=== PATIENT | male | born 1960 | race Caucasian/White ===

== ENCOUNTER 2019-01-16 10:26 | Emergency (ER) | payer OTHER ==
[2019-01-16] MEDS ORDERED: KETOROLAC 30 MG/ML VIAL IVP STA (11:58)
[2019-01-16] MEDS ORDERED: oxyCODONE 5 MG TABLET PO STA (11:58)
--- NOTE | 2019-01-16 12:01 | ED Physician Documentation ---
History of Present Illness - Stated complaint Stated Complaint: BOTH HANDS SWOLLEN - Chief complaint Chief Complaint: General - History obtained from History obtained from: Patient, Family () - Additonal information Additional information: Patient is a 58-year-old male with history of insulin-dependent diabetes and psoriatic arthritis who presents with swelling of his joints with associated discomfort. His arthritic pain has been under control with Humira. It was stopped 6 days ago because of infection in his left great toe. He was started on oral antibiotics at that time. 4 days ago a PICC line was placed and he has been on IV antibiotics since that time. He presents now because of increased arthritic pain, with swelling of his hands as well as his feet. Review of Systems Constitutional: denies: Fever Ears: denies: Tinnitus/ringing Nose: denies: Congestion Throat: denies: Sore throat Cardiac: denies: Chest pain / pressure Respiratory: denies: Dyspnea, Cough GI: denies: Abdominal Pain, Nausea, Vomiting : denies: Dysuria Skin: denies: Rash Musculoskeletal: reports: Extremity pain, Joint pain, Extremity swelling Neurologic: denies: Headache PD PAST MEDICAL HISTORY - Past Medical History Past Medical History: Yes Respiratory: Sleep apnea, CPAP use Endocrine/Autoimmune: Type 2 diabetes, HyPOthyroidism Musculoskeletal: Rheumatoid arthritis, Other (psoriatic arthritis) Other Past Medical History: osetomylitis in great toe - Past Surgical History Past Surgical History: Yes Ortho: Knee replacement, Spine surgery - Present Medications Home Medications: Ambulatory Orders Medication Instructions Recorded Confirmed Levothyroxine [Synthroid] 200 mcg PO QDAC 08/21/13 08/21/13 glipiZIDE [Glucotrol] 2.5 mg PO 0730 08/21/13 08/21/13 metFORMIN [Glucophage] 1,700 mg PO TIDWM 08/21/13 08/21/13 Exenatide Microspheres [Bydureon] 2 mg SQ 12/02/13 12/02/13 Insulin Glargine [Lantus] 80 unit SUBQ QPM 12/02/13 12/02/13 Insulin Glargine [Lantus] 80 unit SUBQ QPM 12/02/13 12/02/13 Testosterone Enanthate 200 mg IM 12/02/13 12/02/13 [Delatestryl] Gabapentin 300 mg PO BID #20 capsule 01/16/19 Hydrocodone/Acetaminophen 1 - 2 each PO Q6H PRN #14 tablet 01/16/19 [Hydrocodon-Acetaminophen 5-325] - Allergies Allergies/Adverse Reactions: Allergies Allergy/AdvReac Type Severity Reaction Status Date / Time No Known Drug Allergies Allergy Verified 12/02/13 20:06 - Social History Does the pt smoke?: No Smoking Status: Never smoker Does the pt drink ETOH?: Yes Does the pt have substance abuse?: No - Immunizations Immunizations are current?: No PD ED PE NORMAL - Vitals Vital signs reviewed: Yes (hypertensive) - General General: Alert and oriented X 3, Well developed/nourished - HEENT HEENT: Atraumatic, Moist mucous membranes, Pharynx benign - Neck Neck: No adenopathy, No JVD - Cardiac Cardiac: RRR - Respiratory Respiratory: No respiratory distress, Clear bilaterally - Abdomen Abdomen: Soft, Non tender - Back Back: No CVA TTP - Derm Derm: No rash - Extremities Extremities: No calf tenderness / cord, Other (There is a small ulceration on the left great toe, with dorsal erythema. There is no lymphangitic streaking. There is edema of both feet and both hands.) - Neuro Neuro: Alert and oriented X 3, No motor deficit Results - Vitals Vitals: Vital Signs - 24 hr 01/16/19 01/16/19 10:29 13:25 Temperature 36.6 C 36.3 C L Heart Rate 117 H 69 Respiratory 16 17 Rate Blood Pressure 153/85 H 130/78 O2 Saturation 96 96 Oxygen O2 Source Room air PD MEDICAL DECISION MAKING - ED course Complexity details: reviewed results, re-evaluated patient, considered differential, d/w patient, d/w family ED course: The patient's presentation is significant for arthritic pain associated with psoriatic arthritis. He is undergoing treatment for osteomyelitis of the left big toe, with IV medication through PICC line. His presentation does not suggest sepsis or worsening of his osteomyelitis. His diabetes is relatively well controlled. Treatment in the emergency department included administration of Toradol 30 mg IV and oxycodone 5 mg orally. He is being discharged with prescription for gabapentin and for Vicodin. I discussed with him and his symptomatic treatment, outpatient follow-up, as well as potentially worrisome signs or symptoms that should prompt reevaluation in the emergency department. Departure - Departure Disposition: 01 Home, Self Care Clinical Impression: Psoriatic arthritis Osteomyelitis Qualifiers: Osteomyelitis type: unspecified type Osteomyelitis location: foot Laterality: left Qualified Code(s): M86.9 - Osteomyelitis, unspecified Condition: Stable Instructions: ED Joint Pain Follow-Up: Jeny Ruffin PA-C [Primary Care Provider] - Prescriptions: Gabapentin 300 mg PO BID #20 capsule Hydrocodone/Acetaminophen [Hydrocodon-Acetaminophen 5-325] 1 - 2 each PO Q6H PRN #14 tablet PRN Reason: pain Comments: You can use gabapentin as prescribed if needed for pain. You can also use Vicodin as prescribed if needed. Continue the antibiotic therapy via the PICC line as previously prescribed. Follow-up with your primary physician as planned. Return to the emergency department if you develop increasing pain or swelling, or otherwise worsening symptoms. Discharge Date/Time: 01/16/19 13:28
[2019-01-16 13:28] VITALS: BP 130/78
== END 2019-01-16 13:28 | disposition home or self-care (01) ==
LOC: ED 10:26
DX: L40.50 Arthropathic psoriasis, unspecified (principal); M06.9 Rheumatoid arthritis, unspecified; E11.69 Type 2 diabetes mellitus with other specified complication; M86.9 Osteomyelitis, unspecified; E11.621 Type 2 diabetes mellitus with foot ulcer; L97.529 Non-pressure chronic ulcer of other part of left foot with unspecified severity; Z79.4 Long term (current) use of insulin
CPT/HCPCS: 96374; 99283; A9270

== ENCOUNTER 2019-02-02 08:00 | Outpatient (CLI) | payer OTHER ==
[2019-02-02 10:20] LABS: BASOPHILS # (AUTO) 0.1 10^3/uL (0.0-0.1); BASOPHILS % (AUTO) 0.9 %; EOSINOPHILS # (AUTO) 0.1 10^3/uL (0.0-0.7); EOSINOPHILS % (AUTO) 0.6 %; HGB - HEMOGLOBIN 13.2 g/dL (14.0-18.0); LYMPHOCYTES # (AUTO) 2.9 10^3/uL (1.5-3.5); MEAN CORPUSCULAR HEMOGLOBIN 30.3 pg (27.0-31.0); MEAN CORPUSCULAR HGB CONC 33.3 g/dL (32.0-36.0); MEAN CORPUSCULAR VOLUME 91.1 fL (80.0-94.0); MEAN PLATELET VOLUME 7.9 fL (7.4-11.4); MONOCYTES # (AUTO) 1.5 10^3/uL (0.0-1.0); MONOCYTES % (AUTO) 9.5 %; NEUTROPHILS # (AUTO) 10.7 10^3/uL (1.5-6.6); PLT - PLATELET COUNT 433 10^3/uL (130-450); RED BLOOD COUNT 4.34 10^6/uL (4.70-6.10); RED CELL DISTRIBUTION WIDTH 14.2 % (12.0-15.0); WHITE BLOOD COUNT 15.3 x10^3/uL (4.8-10.8)
[2019-02-02 10:42] LABS: ALBUMIN 3.5 g/dL (3.2-5.5); ALBUMIN/GLOBULIN RATIO 1.1 (1.0-2.2); ALKALINE PHOSPHATASE 52 IU/L (42-121); ALT ALANINE AMINOTRANSFERASE 17 IU/L (10-60); AST ASPARTATE AMINOTRANSFERASE 18 IU/L (10-42); BILIRUBIN,TOTAL 0.5 mg/dL (0.2-1.0); BUN - BLOOD UREA NITROGEN 18 mg/dL (6-20); CALCIUM 9.4 mg/dL (8.5-10.3); CARBON DIOXIDE - CO2 27 mmol/L (21-32); CHLORIDE 100 mmol/L (101-111); CREATININE 0.8 mg/dL (0.6-1.2); CRP - C-REACTIVE PROTEIN 1.9 mg/dL (0-1.0); GFR - MDRD 100 (>89); GLUCOSE 136 mg/dL (70-100); SODIUM 137 mmol/L (135-145); TOTAL PROTEIN 6.7 g/dL (6.7-8.2); VANCOMYCIN,RANDOM 4.3 ug/mL
== END 2019-02-02 23:59 | disposition home or self-care (01) ==
LOC: LAB.R 08:00
PROVIDERS: ATTEND Podiatrist
DX: L03.90 Cellulitis, unspecified (principal)
CPT/HCPCS: 80053; 80202; 85025; 85651; 86140

== ENCOUNTER 2019-02-08 08:00 | Outpatient (CLI) | payer OTHER ==
[2019-02-08 13:19] LABS: BASOPHILS # (AUTO) 0.1 10^3/uL (0.0-0.1); BASOPHILS % (AUTO) 0.3 %; EOSINOPHILS % (AUTO) 0.2 %; HGB - HEMOGLOBIN 14.4 g/dL (14.0-18.0); LYMPHOCYTES # (AUTO) 3.7 10^3/uL (1.5-3.5); LYMPHOCYTES % (AUTO) 18.9 %; MEAN CORPUSCULAR HGB CONC 32.8 g/dL (32.0-36.0); MEAN CORPUSCULAR VOLUME 91.4 fL (80.0-94.0); MONOCYTES # (AUTO) 1.6 10^3/uL (0.0-1.0); NEUTROPHILS # (AUTO) 14.2 10^3/uL (1.5-6.6); NEUTROPHILS % (AUTO) 72.6 %; PLT - PLATELET COUNT 376 10^3/uL (130-450); RED BLOOD COUNT 4.79 10^6/uL (4.70-6.10); RED CELL DISTRIBUTION WIDTH 15.2 % (12.0-15.0); WHITE BLOOD COUNT 19.6 x10^3/uL (4.8-10.8)
[2019-02-08 13:41] LABS: ALBUMIN 4.2 g/dL (3.2-5.5); ALBUMIN/GLOBULIN RATIO 1.2 (1.0-2.2); ALKALINE PHOSPHATASE 61 IU/L (42-121); ALT ALANINE AMINOTRANSFERASE 16 IU/L (10-60); AST ASPARTATE AMINOTRANSFERASE 18 IU/L (10-42); BILIRUBIN,TOTAL 0.8 mg/dL (0.2-1.0); BUN - BLOOD UREA NITROGEN 21 mg/dL (6-20); CALCIUM 9.6 mg/dL (8.5-10.3); CARBON DIOXIDE - CO2 24 mmol/L (21-32); CHLORIDE 101 mmol/L (101-111); CHOL/HDL RATIO 3.1 (<5.0); CHOLESTEROL 220 mg/dL; CREATININE 0.8 mg/dL (0.6-1.2); GFR - MDRD 100 (>89); GLUCOSE 181 mg/dL (70-100); HDL CHOLESTEROL 70 mg/dL; LDL CHOLESTEROL,CALCULATED 133 mg/dL; LDL/HDL RATIO 1.9 (<3.6); SODIUM 135 mmol/L (135-145); TOTAL PROTEIN 7.7 g/dL (6.7-8.2); VLDL CHOLESTEROL 17 mg/dL
[2019-02-08 14:33] LABS: HB2 TOTAL 15.7 g/dL; HEMOGLOBIN A1C 0.83 g/dL
== END 2019-02-08 23:59 | disposition home or self-care (01) ==
LOC: LAB.WCP 08:00
PROVIDERS: ATTEND Physician Assistant Medical
DX: I25.10 Atherosclerotic heart disease of native coronary artery without angina pectoris (principal); E03.9 Hypothyroidism, unspecified; E11.621 Type 2 diabetes mellitus with foot ulcer
CPT/HCPCS: 36415; 80053; 80061; 83036; 83721; 84443; 85025

== ENCOUNTER 2019-03-08 14:00 | Outpatient (CLI) | payer OTHER | END 2019-03-08 14:01 | disposition home or self-care (01) | LOC: LAB.WCP 14:00 | PROVIDERS: ATTEND Physician Assistant Medical | DX: R31.9 Hematuria, unspecified (principal) | CPT/HCPCS: 87086 ==

== ENCOUNTER 2019-03-14 08:00 | Outpatient (CLI) | payer OTHER ==
[2019-03-14 12:43] LABS: BILIRUBIN,URINE NEGATIVE (NEGATIVE); GLUCOSE, URINE (UA) NEGATIVE (NEGATIVE); KETONES,URINE (UA) NEGATIVE (NEGATIVE); LEUKOCYTE ESTERASE, URINE NEGATIVE (NEGATIVE); NITRITE,URINE NEGATIVE (NEGATIVE); OCCULT BLOOD,URINE NEGATIVE (NEGATIVE); PH,URINE 6.5 PH (5.0-7.5); PROTEIN,URINE NEGATIVE (NEGATIVE); UROBILINOGEN,URINE 0.2 (NORMAL) E.U./dL (NORMAL)
[2019-03-14 12:46] LABS: CLARITY,URINE CLEAR (CLEAR)
== END 2019-03-14 23:59 | disposition home or self-care (01) ==
LOC: LAB 08:00
PROVIDERS: ATTEND Physician Assistant Medical
DX: R31.9 Hematuria, unspecified (principal)
CPT/HCPCS: 81001; 81003; 87086

== ENCOUNTER 2019-04-18 08:00 | Outpatient (CLI) | payer OTHER ==
[2019-04-18 18:52] LABS: CHOL/HDL RATIO 2.4 (<5.0); CHOLESTEROL 208 mg/dL; HDL CHOLESTEROL 85 mg/dL; LDL CHOLESTEROL,CALCULATED 102 mg/dL; LDL/HDL RATIO 1.2 (<3.6); VLDL CHOLESTEROL 21 mg/dL
== END 2019-04-18 23:59 | disposition home or self-care (01) ==
LOC: LAB.WCP 08:00
PROVIDERS: ATTEND Physician Assistant Medical
DX: E78.5 Hyperlipidemia, unspecified (principal); E03.9 Hypothyroidism, unspecified
CPT/HCPCS: 36415; 80061; 83721; 84443

== ENCOUNTER 2020-09-23 12:08 | Outpatient (CLI) | payer OTHER ==
--- NOTE | 2020-09-23 13:43 | XRAY Report ---
PROCEDURE: Foot 3 View RT INDICATIONS: ULCER TECHNIQUE: 3 views of the foot were acquired. COMPARISON: None FINDINGS: Bones: Severe first MTP joint osteophytic changes are noted with extensive erosion and prominent cheri inal osteophyte formation. Septic arthritis cannot be excluded, suggest clinical correlation. Osteoar thritic changes are also noted throughout the interphalangeal joints. There is age indeterminant defo rmity involving fourth proximal phalangeal base with increased lucency in the area concerning for age -indeterminate fracture. No other fracture or dislocation. Well-defined plantar and dorsal calcaneal enthesophytes are seen. Soft tissues: Significant soft tissue swelling over dorsum of forefoot with ulceration over lateral aspect of first toe is seen. No tibiotalar joint effusion. Achilles tendon appears normal. IMPRESSION: Dorsal midfoot and forefoot soft tissue swelling with ulceration over lateral aspect of first toe. Ag e-indeterminate fracture involving fourth proximal phalangeal base as above. Pathologic fracture seco ndary to osteomyelitis cannot be excluded. Severe first MTP joint osteoarthritic changes with extensive erosive changes, which could represent s eptic arthritis, suggest clinical correlation. Reviewed by: Bandar Sykes MD on 09/23/2020 1:42 PM PST Approved by: Bandar Sykes MD on 09/23/2020 1:42 PM PST Station ID: [id number]
== END 2020-09-23 12:09 | disposition home or self-care (01) ==
LOC: DI 12:08
PROVIDERS: ATTEND Podiatrist
DX: L97.519 Non-pressure chronic ulcer of other part of right foot with unspecified severity (principal); S92.511A Displaced fracture of proximal phalanx of right lesser toe(s), initial encounter for closed fracture; M19.071 Primary osteoarthritis, right ankle and foot

== ENCOUNTER 2022-02-02 10:13 | Outpatient (CLI) | payer OTHER ==
[2022-02-02 11:41] LABS: BASOPHILS # (AUTO) 0.1 10^3/uL (0.0-0.1); BASOPHILS % (AUTO) 0.7 %; EOSINOPHILS # (AUTO) 3.1 10^3/uL (0.0-0.7); EOSINOPHILS % (AUTO) 21.1 %; HCT - HEMATOCRIT 43.9 % (42.0-52.0); LYMPHOCYTES # (AUTO) 2.5 10^3/uL (1.5-3.5); LYMPHOCYTES % (AUTO) 16.9 %; MEAN CORPUSCULAR HEMOGLOBIN 31.4 pg (27.0-31.0); MEAN CORPUSCULAR HGB CONC 34.2 g/dL (32.0-36.0); MEAN PLATELET VOLUME 11.2 fL (7.4-11.4); MONOCYTES # (AUTO) 1.1 10^3/uL (0.0-1.0); MONOCYTES % (AUTO) 7.6 %; NEUTROPHILS # (AUTO) 7.8 10^3/uL (1.5-6.6); NEUTROPHILS % (AUTO) 53.3 %; PLT - PLATELET COUNT 264 10^3/uL (130-450); RED BLOOD COUNT 4.77 10^6/uL (4.70-6.10); RED CELL DISTRIBUTION WIDTH 12.8 % (12.0-15.0); WHITE BLOOD COUNT 14.7 x10^3/uL (4.8-10.8)
[2022-02-02 11:46] LABS: SLIDE REVIEW? Indicated
[2022-02-02 12:04] LABS: CREATININE,URINE 23.3 mg/dL; MICROALBUM/CREATININE RATIO,UR 17.2 ug/mg (<30.0); MICROALBUMIN,URINE 0.4 mg/dL (0-300.0)
[2022-02-02 12:09] LABS: ALBUMIN 4.7 g/dL (3.2-5.5); ALBUMIN/GLOBULIN RATIO 1.6 (1.0-2.2); ALKALINE PHOSPHATASE 108 IU/L (42-121); ALT ALANINE AMINOTRANSFERASE 20 IU/L (10-60); AST ASPARTATE AMINOTRANSFERASE 19 IU/L (10-42); BILIRUBIN,TOTAL 0.8 mg/dL (0.2-1.0); BUN - BLOOD UREA NITROGEN 16 mg/dL (6-20); CARBON DIOXIDE - CO2 23 mmol/L (21-32); CHLORIDE 102 mmol/L (101-111); CHOL/HDL RATIO 2.2 (<5.0); CHOLESTEROL 115 mg/dL; CREATININE 0.8 mg/dL (0.6-1.2); GFR - MDRD 99 (>89); GLUCOSE 192 mg/dL (70-100); HDL CHOLESTEROL 53 mg/dL; LDL CHOLESTEROL,CALCULATED 49 mg/dL; LDL/HDL RATIO 0.9 (<3.6); POTASSIUM 4.1 mmol/L (3.5-5.0); SODIUM 136 mmol/L (135-145); TOTAL PROTEIN 7.7 g/dL (6.7-8.2); TRIGLYCERIDES 66 mg/dL; VLDL CHOLESTEROL 13 mg/dL
[2022-02-02 12:18] LABS: THYROID STIMULATING HORMONE 1.12 uIU/mL (0.34-5.60)
[2022-02-02 12:23] LABS: ESTIMATED AVERAGE GLUCOSE 214 mg/dL (70-100); HEMOGLOBIN A1c% 9.1 % (4.27-6.07)
[2022-02-02 12:27] LABS: PLATELET ESTIMATE, MANUAL NORMAL (130-450,000) (NORMAL); PLATELET MORPHOLOGY 1+ LARGE PLATELETS (NORMAL); RBC MORPHOLOGY (MULTIPLE) NORMAL APPEARANCE (NORMAL)
[2022-02-02 12:28] LABS: DIFFERENTIAL COMMENT MANUAL=AUTO DIFF; WBC MORPHOLOGY (MULTIPLE) NORMAL APP (NORMAL)
== END 2022-02-02 10:14 | disposition home or self-care (01) ==
LOC: LAB.N 10:13
PROVIDERS: ATTEND Physician Assistant Medical
DX: E11.65 Type 2 diabetes mellitus with hyperglycemia (principal); E03.9 Hypothyroidism, unspecified; L40.50 Arthropathic psoriasis, unspecified; E78.5 Hyperlipidemia, unspecified; Z12.5 Encounter for screening for malignant neoplasm of prostate
CPT/HCPCS: 36415; 80053; 80061; 82043; 82570; 83036; 83721; 84153; 84443; 85025

== ENCOUNTER 2022-05-27 09:07 | Outpatient (CLI) | payer OTHER ==
[2022-05-27 12:47] LABS: BASOPHILS # (AUTO) 0.1 10^3/uL (0.0-0.1); BASOPHILS % (AUTO) 0.8 %; EOSINOPHILS # (AUTO) 1.1 10^3/uL (0.0-0.7); EOSINOPHILS % (AUTO) 10.1 %; HCT - HEMATOCRIT 41.8 % (42.0-52.0); HGB - HEMOGLOBIN 14.2 g/dL (14.0-18.0); LYMPHOCYTES # (AUTO) 2.1 10^3/uL (1.5-3.5); LYMPHOCYTES % (AUTO) 19.6 %; MEAN CORPUSCULAR HEMOGLOBIN 31.9 pg (27.0-31.0); MEAN CORPUSCULAR VOLUME 93.9 fL (80.0-94.0); MEAN PLATELET VOLUME 11.9 fL (7.4-11.4); MONOCYTES # (AUTO) 0.9 10^3/uL (0.0-1.0); MONOCYTES % (AUTO) 8.4 %; NEUTROPHILS # (AUTO) 6.4 10^3/uL (1.5-6.6); NEUTROPHILS % (AUTO) 60.6 %; PLT - PLATELET COUNT 245 10^3/uL (130-450); RED BLOOD COUNT 4.45 10^6/uL (4.70-6.10); RED CELL DISTRIBUTION WIDTH 12.4 % (12.0-15.0); WHITE BLOOD COUNT 10.5 x10^3/uL (4.8-10.8)
[2022-05-27 13:34] LABS: ESTIMATED AVERAGE GLUCOSE 203 mg/dL (70-100); HEMOGLOBIN A1c% 8.7 % (4.27-6.07)
[2022-05-27 13:48] LABS: CALCIUM 9.6 mg/dL (8.5-10.3); CREATININE 0.8 mg/dL (0.6-1.2)
== END 2022-05-27 09:08 | disposition home or self-care (01) ==
LOC: LAB.N 09:07
PROVIDERS: ATTEND Physician Assistant Medical
DX: E11.9 Type 2 diabetes mellitus without complications (principal); M86.9 Osteomyelitis, unspecified
CPT/HCPCS: 36415; 80048; 83036; 85025

== ENCOUNTER 2024-04-14 17:46 | Outpatient (CLI) | payer OTHER | END 2024-04-14 23:59 | disposition EMS.NT | LOC: EMS 17:46 | DX: Z03.89 Encounter for observation for other suspected diseases and conditions ruled out (principal) ==